=== PATIENT | male | born 1995 | race Caucasian/White ===

== ENCOUNTER 2022-01-27 09:56 | Emergency (ER) | payer BC ==
[2022-01-27] MEDS ORDERED: Lidocaine 1% 10 ML MDV INJECT ONE (10:14)
[2022-01-27] MEDS ORDERED: Bacitracin Oint 1 GM U/D Packet TOP ONE (10:14)
[2022-01-27] MEDS ORDERED: Diphtheria,Pertussis(Acell),Tetanus Vaccine 0.5 ML Syringe IM ONE (10:14)
== END 2022-01-27 11:04 | disposition home or self-care (01) ==
LOC: DL.ED 09:56
DX: S51.812A Laceration without foreign body of left forearm, initial encounter (principal); W26.0XXA Contact with knife, initial encounter; Z23 Encounter for immunization
CPT/HCPCS: 12001; 90471; 90715; 99282-25